=== PATIENT | female | born 1960 | race Hispanic/Latino ===

== ENCOUNTER 2016-08-16 09:43 | Day surgery (SDC) | payer OTHER ==
[~2016-08-16] VITALS: Ht 154.9 cm; Wt 56.2 kg
[2016-08-16] VITALS (9 sets, daily range): BP systolic 123–143; BP diastolic 57–80; PULSE 50–63; RESP 12–18; O2SAT 97–100
--- NOTE | 2016-08-16 07:06 | PCM.HPANE ---
Patient Data Surgeon Admitting Provider: Attending Provider:Jorge Ghosh MD Primary Care Physician:Brigida Cantu MD Other Provider:[facility] Reason for Visit Hyperparathyroidism Ht/WT & BMI Height (Feet): 5 Height (Inches): 1 Weight (Kilograms): 56.2 Body Mass Index 23.00 Allergies Coded Allergies: No Known Allergies (Verified Allergy, Unknown, 10/12/15) lidocaine (Unverified Allergy, Unknown, Agitation, 07/06/16) Pt says gets high BP after lidocaine. kld 07/06/16 Past Anesthesia History Anesthesia History: Denies:: Anesthesia Reactions Diabetes History Hx Diabetes?: No MRSA MRSA: No Medications Reported Medications Cholecalciferol (Vitamin D3) (Vitamin D3)1,000 Unit Tab.chew1,000 Unit PO DAILY 08/12/16 Discontinued Scripts Tramadol 50 Mg [id number] Mg PO Q4H PRN For Pain #12 TABLET Ref 0 Prov:Nnamdi Christianson DO 10/12/15 Diazepam (Valium)2 Mg Tablet2 Mg PO TID PRN For Anxiety #12 TABLET Prov:Nnamdi Christianson DO 10/12/15 Naproxen 500 Mg [id number] Mg PO BID PRN For Pain #20 TABLET Prov:Nnamdi Christianson DO 10/12/15 History History of ENT Problems?: No HEENT History: Denies:: Abnormal Airway Cataracts Difficult Intubation Dysphagia Glaucoma Hearing Problem Sinus Problem TMJ Denture Type: None Teeth Condition: Within Normal Limits Hx of Heart Problems?: No Cardiovascular History: Denies:: AICD Abdominal Aortic Aneurism Atrial Fibrillation Cardiac Surgery Chest Pain Congestive Heart Failure Coronary Artery Disease Edema Heart Murmur Hypertension Irregular Heartbeat Pacemaker Peripheral Vascular Rheumatic Fever Thrombophlebitis Valvular Heart Disease Hx of Respiratory Problem?: No Respiratory History: Denies:: Oxygen Administration Tuberculosis Use of C-PAP Machine Hx Neurologic Problems?: No Neurological History: Denies:: CVA Multiple Sclerosis Parkinson's Disease Seizures Hx of GI Problems?: No Hx of Problems?: No Female Hx: Denies:: Currently Problems with Breasts? Skin History: Denies:: History Skin Disorders? Hx Musculoskeletal Problems?: No Hx of Psycho/Social Problems?: No Psycho Social History: Denies:: Anxiety Hx Depression Hx Surgeries?: Yes (c sections x 3) Hx Any Other Health Problems?: Yes Other History: Positive for:: Endocrine Disease Thyroid Disease (hyperparathyroid current admission problem) Denies:: Cancer Hx Diabetes: No Hx Alcohol Use: NoHx Substance Use: No Smoking Status: Never Smoker Have You Smoked inLast 12 mo: No Stop/Bang Treated for Sleep Apnea?: No Do You Have a CPAP Machine?: No S-Snoring: Do You Snore Loudly: No T-Tired: feel tired, fatigued: Yes O-Obsered: Observed not breath: No P-Blood Pressure: treated: No B- Body Mass Index > 35 kg/m2: No A- Age over 50: Yes N- Neck Large Circumference: No G- Gender Male: No TITO Total Score: 2 TITO Risk Assessment: Low Risk, <3 Yes Risk Assessment Category Category 1A: Patient has history of documented sleep apnea, and HAS NOT received any narcotic, sedative or anesthesia administration during this stay. Category 1B: Patient has history of documented sleep apnea, and HAS received any narcotic , sedative or anesthesia administration during this stay Category 2: Patient has SUSPECTED Obstructive Sleep Apnea, and HAS received any narcotic , sedative or anesthesia administration during this stay. Category 3: Patient has SUSPECTED Obstructive Sleep Apnea and HAS NOT received narcotic, sedative or anesthesia administration during this stay. Category 4: Outpatient in Procedural Areas with known sleep apnea or who screen positive for High Risk via the STOP/BANG questionnaire. Exam Exam General Appearance: Alert, Oriented X3, Cooperative, No Acute Distress HEENT/AIRWAY: MP 2 Lungs: Clear to Auscultation, Normal Air Movement Heart: Exam Unremarkable, Regular Rate/Rhythm, No Murmurs/Rubs/Gallops Plan Impression Patient chart reviewed, patient interviewed and anesthestic plan with risks, benefits, and alternatives discussed, and informed consent obtained. NPO per Anesth. Guidelines: Yes ASA Physical Status: ASA2 Mod Systemic Disease Anesthetic Plan: GA Bene/Risks/Altern/Consents: Yes HP Complete Prior to Induction: Yes Christiano Eaton DO August 16, 2016 07:06
[~2016-08-16 09:43] MED LIST: CHOL10008 PO; Lactated Ringer's 1,000 ML IV ONE
[2016-08-16] MEDS ORDERED: Glycopyrrolate 0.2 MG/ML 1mL Inj ONE (09:44)
[2016-08-16] MEDS ORDERED: Dexamethasone 4 mg/mL Inj ONE (09:44)
[2016-08-16] MEDS ORDERED: Neostigmine 1 mg/mL 10 mL Inj ONE (09:44)
[2016-08-16] MEDS ORDERED: Rocuronium 10 mg/mL 5 mL Inj ONE (09:44)
[2016-08-16] MEDS ORDERED: fentaNYL-PF 50 mCg/mL 2 mL Inj ONE (09:44)
[2016-08-16] MEDS ORDERED: Ondansetron 2 mg/mL 2 mL Inj ONE (09:44)
[2016-08-16] MEDS ORDERED: Propofol 10,000 mCg/mL 20 mL Inj ONE (09:44)
[2016-08-16] MEDS ORDERED: Lactated Ringer's 1,000 ML IV ONE ×2 (11:04→14:11)
[2016-08-16] MEDS ORDERED: Bupivacaine-MPF 0.25%/EPI 30 mL Inj INJ ONE (12:45)
[2016-08-16] MEDS ORDERED: HYDROcodone-APAP 5-325 mg Tablet PO PRN ×2 (14:10→15:15)
[2016-08-16] MEDS ORDERED: Lactated Ringer's 1,000 ML IV SCH (14:16)
[2016-08-16] MEDS ORDERED: Lactated Ringer's 500 ML IV PRN (14:16)
[2016-08-16] MEDS ORDERED: HYDROmorphone 1 mg/mL Inj IVPUSH PRN (14:20)
[2016-08-16] MEDS ORDERED: EPHEDrine Sulfate 50 mg/mL Inj IVPUSH PRN (14:20)
[2016-08-16] MEDS ORDERED: Dexamethasone 4 mg/mL Inj IVPUSH PRN (14:20)
[2016-08-16] MEDS ORDERED: MetoCLOpramide 5 mg/mL 2 mL Inj IVPUSH PRN (14:20)
[2016-08-16] MEDS ORDERED: Ondansetron 2 mg/mL 2 mL Inj IVPUSH PRN (14:20)
[2016-08-16] MEDS ORDERED: Phenylephrine 10,000 mCg/mL Inj IVPUSH PRN (14:20)
[2016-08-16] MEDS: fentaNYL-PF 50 mCg/mL 2 mL Inj IVPUSH PRN ×2 (14:25→14:45)
--- NOTE | 2016-08-16 14:25 | PCM.ANEP1 ---
Post Anesthesia Phase 1 PACU Phase 1 Assessment Date of Service: August 16, 2016 Vital Signs Vital Signs Date Time Temp Pulse Resp B/P Pulse Ox O2 Delivery O2 Flow Rate FiO2 08/16/16 10:43 36.2 17 123/80 98 Room Air Anesthetic Administered: GA Level of Alertness: Sleeping, hard to arouse MOSES's with Equal Strength: Yes Pain: No Nausea or Vomiting: No Cardiovascular Function and Hy: Yes Oxygen Delivery: Simple Mask (6l) Lungs: Clear to Auscultation, Normal Air Movement Dermatome Level: Full Sensation Complications: No Follow up Care: No Christiano Eaton DO August 16, 2016 14:24
--- NOTE | 2016-08-16 23:04 | OP ---
[address] [address] OPERATIVE REPORT PATIENT: SHASTA LITTLE : 1960 MR#: [id number] ADMIT: 08/16/2016 JOB ID: [id number] DATE OF SURGERY: 08/16/2016 PREOPERATIVE DIAGNOSIS(ES): Primary hyperparathyroidism. POSTOPERATIVE DIAGNOSIS(ES): Primary hyperparathyroidism. PROCEDURE: Parathyroid exploration with excision of left inferior parathyroid adenoma. SURGEON: Jorge Ghosh MD. BLEACHING SUPERVISOR: 1. Regan Pulliam MD. 2. Joseph Ford PA-C. INDICATIONS: A 56-year-old female who has primary hyperparathyroidism. She has had a calcium of 11.6 with a PTH of 133, and her 24 hour urinary calcium excretion was normal. She has a normal creatinine. She had a sestamibi scan that suggested an isolated left inferior pole adenoma. She had a CT scan that confirmed an isolated left inferior parathyroid adenoma. After discussing options with the patient, it was elected to proceed with a parathyroid exploration initially targeting the left inferior pole. FINDINGS: She had a 1.5 x 1.3 x 0.8 cm parathyroid adenoma posterior to the inferior pole on the left. Before removing this her PTH was 629.8. Five minutes after excision it was 212.2, and 10 minutes after excision it was 124. The calcium and PTH will be drawn in the recovery room. PROCEDURE: At the beginning and end of the operation, the SCOAP checklist was completed. A general endotracheal anesthetic was induced. She has a past history of postoperative hypertension and so for lab draws, as well as for blood pressure monitoring, an arterial line was placed by Dr. Christiano Eaton. Her neck was extended, and using ChloraPrep, prepped and draped in the usual fashion. The incision was designed and infiltrated with 0.2% bupivacaine with epinephrine. A collar incision was made. The platysma was divided with cautery. Subplatysmal flaps were raised. The strap muscles were divided, in midline and the left inferior pole was then exposed. The superior pole actually was not exposed, nor was really the hilum of the left side. Using the LigaSure, I divided one or two inferior pole vessels, and that allowed elevation of the left inferior pole and posterior to it an enlarged gland grossly consistent with a parathyroid adenoma was identified. Her labs were drawn and with the initial PTH drawn before the lesion was removed and devascularized, but I had manipulated it, and it came back at 629. The enlarged gland was then removed and its vascular pedicle divided with bipolar cautery. At five minutes and 10 minutes after removal of the adenoma her PTH came back at 212 and 124 respectively. There was no evidence of bleeding. The strap muscles were reapproximated with running 3-0 Vicryl, the platysma with running 3-0 Vicryl, the skin with subcuticular 4-0 Vicryl and Dermabond. The estimated blood loss was less than 10 cc. There were no apparent complications. The final sponge, needle and instrument counts were announced as correct. The patient was returned to recovery room in stable condition.
== END 2016-08-16 23:59 | disposition home or self-care (01) ==
LOC: SAS 09:43
PROVIDERS: ATTEND Surgery
DX: E21.0 Primary hyperparathyroidism (principal); M81.0 Age-related osteoporosis without current pathological fracture; E55.9 Vitamin D deficiency, unspecified; K76.0 Fatty (change of) liver, not elsewhere classified
CPT/HCPCS: 36415; 60500; 82310; 83970; J1100; J2175; J2250; J2405; J2710; J3010; J7120